=== PATIENT | male | born 1985 | race Caucasian/White ===

== ENCOUNTER 2016-12-27 10:36 | Emergency (ER) | payer OTHER ==
[~2016-12-27] VITALS: Ht 175.3 cm; Wt 87.0 kg
[2016-12-27 10:41] VITALS: BP 131/68; PULSE 72; RESP 16; TEMP 98.5; O2SAT 98
--- NOTE | 2016-12-27 11:14 | PD ---
HPI Chief Complaint: Laceration/Skin Injury Time Seen by Provider: 11:08 Travel History International Travel<30 days: No Contact w/Intl Traveler<30days: No Traveled to known affect area: No History of Present Illness HPI 31-year-old male presents to the emergency room for evaluation of right hand laceration that occurred just prior to arrival. Patient accidentally himself on a sharp edge of a ratchet strap. Reports mild to moderate bleeding. Denies significant pain or loss of range of motion. Last tetanus was less than 5 years ago. [facility] Past Medical History Medical History: Denies Significant Hx Influenza Vaccination: No Past Surgical History Other Surgery: Yes (TOENAILS) Social History Alcohol Use: Yes (WEEKENDS) Tobacco Use: No Substance Use: No Allergies-Medications (Allergen,Severity, Reaction): Coded Allergies: Penicillin (Verified Allergy, Unknown, RASH, 12/27/16) Reported Meds & Prescriptions Reported Meds & Active Scripts Active No Active Prescriptions or Reported Medications Review of Systems Except as stated in HPI: all other systems reviewed are Neg Physical Exam Narrative GENERAL: Well-nourished, well-developed male in no distress. Afebrile. Ambulatory. SKIN: Focused skin assessment warm/dry. 4 cm well approximated, slightly jagged wound to the right thenar eminence. HEAD: Normocephalic. EYES: No scleral icterus. No injection or drainage. NECK: Supple, trachea midline. No JVD or lymphadenopathy. CARDIOVASCULAR: Regular rate and rhythm without murmurs, gallops, or rubs. RESPIRATORY: Breath sounds equal bilaterally. No accessory muscle use. MUSCULOSKELETAL: No cyanosis, or edema. Less than 2 second capillary refill distally. Full range of motion of the hand. Data Data Last Documented VS Vital Signs Date Time Temp Pulse Resp B/P Pulse Ox O2 Delivery O2 Flow Rate FiO2 12/27/16 10:41 98.5 72 16 131/68 98 Orders Lidocaine 1% Inj (50 Ml) (Xylocaine 1% I (12/27/16 11:15) MDM Medical Decision Making Medical Screen Exam Complete: Yes Emergency Medical Condition: Yes Medical Record Reviewed: Yes Differential Diagnosis Laceration, abrasion, skin tear, contusion Narrative Course 31-year-old right-handed male presents to the emergency room for evaluation of laceration to his right thenar eminence that occurred just prior to arrival. Patient accidentally cut himself on a metal strap. Tetanus is up-to-date. Laceration was thoroughly cleansed and repaired, see procedure note for details. Patient discharged with wound care instructions and told to follow-up with a primary care physician or return for worsening symptoms. He understands and agrees to plan. Procedures Procedure Narrative LACERATION LOCATION: Right thenar eminence LENGTH: 4 cm NUMBER OF STITCHES/JUANY: 7 simple interrupted REPAIR: The area of the laceration was prepped with Betadine and sterilely draped. The laceration was infiltrated with 1% lidocaine. The wound was copiously irrigated and explored without evidence of foreign body, tendon injury or neurovascular injury. The wound was closed using 5-0 Prolene. This was a single layer repair. A sterile dressing was applied. The patient was advised to keep the dressing clean and dry. Patient tolerated the procedure well. Diagnosis Primary Impression: Laceration of right hand Qualified Code: S61.411A - Laceration of right hand without foreign body, initial encounter Referrals: Primary Care Physician Patient Instructions: General Instructions, Laceration (ED) Additional Instructions: Rest and drink plenty of fluids. Keep wound clean and dry. Apply triple antibiotics ointment daily. Sutures out in 10 days. Take ibuprofen with food as directed, as needed for pain. Apply ice to the affected area for 20 minutes at a time, as needed for pain and swelling. Follow-up with a primary care physician. Return to the emergency room for worsening symptoms. Scripts No Active Prescriptions or Reported Meds Disposition: 01 DISCHARGE HOME Condition: Stable Lillian De León Dec 27, 2016 11:14
[2016-12-27] MEDS ORDERED: LIDOCAINE HCL 1% 50 ML VIAL INFIL ONE (11:15)
== END 2016-12-27 11:50 | disposition home or self-care (01) ==
LOC: PHEFT 10:36
DX: S61.411A Laceration without foreign body of right hand, initial encounter (principal); W26.8XXA Contact with other sharp object(s), not elsewhere classified, initial encounter
CPT/HCPCS: 12002